=== PATIENT | female | born 2000 | race Caucasian/White ===

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

== ENCOUNTER 2021-08-26 17:47 | Emergency (ER) | payer OTHER ==
[2021-08-26 18:06] VITALS: BP 102/68; PULSE 98; TEMP 98; BMI 27.4
[2021-08-26] MEDS ORDERED: ACETAMINOPHEN 500 MG TABLET (FP) PO ONE (19:45)
[2021-08-26] MEDS ORDERED: ACETAMINOPHEN 500 MG TABLET (FP) ONE (20:23)
[2021-08-26 21:07] LABS: BASO % 0.2 % (0-2.0); EOS % 0.1 % (0-4.5); HEMATOCRIT 34.2 % (32.4-45.2); HEMOGLOBIN 11.5 GM/dL (10.7-15.3); LYMPH % 28.3 % (8-40); MCH 29.2 pg (25.7-33.7); MCHC 33.7 g/dl (32.0-36.0); MEAN CELL VOLUME 86.7 fl (80-96); MEAN PLT VOLUME 9.8 fl (7.5-11.1); MONO % 7.2 % (3.8-10.2); NEUT % 64.2 % (42.8-82.8); PLATELET COUNT 189 10^3/uL (134-434); RBC 3.94 M/mm3 (3.60-5.2); RDW 14.5 % (11.6-15.6); WHITE BLOOD COUNT 6.7 K/mm3 (4.0-10.0)
[2021-08-26 21:15] LABS: INR 1.06 (0.83-1.09); PROTHROMBIN TIME (PATIENT) 12.2 SEC (9.7-13.0)
[2021-08-26 21:18] LABS: ACTIVATED PTT 32.7 SECONDS (25.2-36.5)
[2021-08-26 21:21] LABS: CALCIUM 8.9 mg/dL (8.5-10.1)
[2021-08-26 21:22] LABS: BLOOD UREA NITROGEN 9.4 mg/dL (7-18); MAGNESIUM 2.3 mg/dL (1.8-2.4)
[2021-08-26 21:25] LABS: CREATININE 0.8 mg/dL (0.55-1.3)
[2021-08-26 21:27] LABS: BILIRUBIN,TOTAL 0.2 mg/dL (0.2-1); TOT PROT 7.3 g/dl (6.4-8.2)
== END 2021-08-26 23:29 | disposition home or self-care (01) ==
LOC: JER 17:47
DX: M54.50 Low back pain, unspecified (principal); R07.89 Other chest pain
CPT/HCPCS: 36415; 71046-TC-FY; 80053; 83735; 84484; 84703; 85025; 85379; 85610; 85730; 93005; 93010; 99285-25

== ENCOUNTER 2022-03-04 15:28 | Emergency (ER) | payer OTHER ==
[2022-03-04 16:03] VITALS: BP 110/81; TEMP 97.6
[2022-03-04 17:56] VITALS: PULSE 86; RESP 12
== END 2022-03-04 19:06 | disposition home or self-care (01) ==
LOC: JER 15:28
DX: U07.1 COVID-19 (principal)
CPT/HCPCS: 0241U-QW; 99283-25